=== PATIENT | male | born 1950 | race Caucasian/White ===

== ENCOUNTER → 2016-09-12 | Outpatient (CLI) | payer MEDICARE, OTHER | LOC: LAB 08:45 | PROVIDERS: ATTEND Family Medicine | DX: R19.7 Diarrhea, unspecified (principal) | CPT/HCPCS: 87507 ==

== ENCOUNTER → 2016-09-17 | Outpatient (REF) | payer MEDICARE, OTHER | LOC: LAB 13:00 | PROVIDERS: ATTEND Family Medicine | DX: E11.9 Type 2 diabetes mellitus without complications (principal) | CPT/HCPCS: 83036 ==

== ENCOUNTER → 2016-12-16 | Outpatient (REF) | payer MEDICARE, OTHER ==
[~2016-12-16] MED LIST: ALBU6.7H IH; ASPI-586 PO; ASPI325T4 GT; CALC-26 PO; CLIN-79 PO; DICY10CA12 PO; ESCI10TA PO; ESCI20TA PO; FURO-125 PO; GLUC100016 PO; HYDR-3702 PO; LVF500T GT; MULT-35 PO; NIAC500T2 PO; OMEP20CA6 PO; ROSU40TA PO; SIMV80TA3 PO; TOPI50TA86 PO
[2016-12-16 13:38] LABS: BASOPHILS % (AUTO) 1 % (0-2); EOSINOPHILS # (AUTO) 0.2 10^3uL; EOSINOPHILS % (AUTO) 2 % (0-4); LYMPHOCYTES # (AUTO) 1.7 X10^3; MEAN CORPUSCULAR HGB CONC 33.2 g/dL (31.0-37.0); MEAN CORPUSCULAR VOLUME 95 FL (80-100); MEAN PLATELET VOLUME 9.9 FL (6.0-9.5); MONOCYTES # (AUTO) 0.8 X10^3; MONOCYTES % (AUTO) 10 % (3-11); NEUTROPHILS # (AUTO) 5.4 X10^3; NEUTROPHILS % (AUTO) 67 % (51-67); PLATELET COUNT 229 10^3uL (150-450); WHITE BLOOD COUNT 8.07 10^3uL (4.0-11.0)
[2016-12-16 13:51] LABS: ALBUMIN 4.2 g/dL (3.4-5.0); ANION GAP 13.4 MEQ/L (3-15); CALCULATED IONIZED CALCIUM 3.9 mg/dL (3.8-4.6)
[2016-12-16 14:00] LABS: MEAN CORPUSCULAR HEMOGLOBIN 31.5 PG (26.0-34.0)
[2016-12-16 14:01] LABS: BILIRUBIN,URINE Negative (Negative); CLARITY,URINE Clear; COLOR,URINE Yellow; GLUCOSE, URINE (UA) Negative (Negative); LEUKOCYTE ESTERASE ,URINE Negative (Negative); PH,URINE 6.5 (5.0 - 8.0)
== END ==
LOC: LAB 13:02
PROVIDERS: ATTEND Family Medicine
DX: E11.9 Type 2 diabetes mellitus without complications (principal); R10.32 Left lower quadrant pain; E78.4 Other hyperlipidemia; G47.33 Obstructive sleep apnea (adult) (pediatric); K75.81 Nonalcoholic steatohepatitis (NASH)
CPT/HCPCS: 80053; 81003; 83036; 85025